=== PATIENT | female | born 1970 | race Caucasian/White ===

== ENCOUNTER → 2017-09-08 10:22 | Outpatient (CLI) | payer OTHER, SELFPAY ==
[2017-09-08 09:19] VITALS: BP 133/88
[2017-09-08 11:33] LABS: ALB/GLOB Ratio 0.9 RATIO (0.9-2.4); AST(SGOT) 20 U/L (15-37); Alanine Aminotransfer ALT/SGPT 26 U/L (13-56); Albumin, Serum 3.5 g/dL (3.2-5.0); Alkaline Phosphatase 101 U/L (45-117); Anion Gap 8 (5-15); BUN 10 mg/dL (7-18); BUN/Creat Ratio 15.4 RATIO (10-20); Calcium,Total 8.7 mg/dL (8.5-10.1); Chloride 107 mmol/L (98-107); Creatinine, Serum 0.65 mg/dL (0.55-1.02); EST Glomerular Filtration Rate 105 mL/min (>60); Est Glom Filt Rate - Afr Amer 127 mL/min (>60); Free T3 4.3 pg/mL (2.18-3.98); Globulin 4.1 g/dL (2.2-4.2); Glucose 129 mg/dL (70-110); Potassium 4.3 mmol/L (3.5-5.1); Protein, Total 7.6 g/dL (6.4-8.2); Sodium Level 140 mmol/L (136-145); T4 Free Direct 1.23 ng/dL (0.76-1.46); Thyroid Stim Hormone (TSH) < 0.01 uIU/mL (0.358-3.74)
== END ==
PROVIDERS: Family Provider Family Medicine; PCP Family Medicine; Visit Provider Nurse Practitioner
DX: E07.9 Disorder of thyroid, unspecified (principal); R89.9 Unspecified abnormal finding in specimens from other organs, systems and tissues
CPT/HCPCS: 36415; 80053; 84439; 84443; 84481

== ENCOUNTER → 2017-09-19 12:38 | Outpatient (CLI) | payer OTHER, SELFPAY ==
[2017-09-08 09:19] VITALS: BP 133/88
--- NOTE | 2017-09-19 12:40 | US_ITS ---
STUDY: THYROID ULTRASOUND REASON FOR EXAM: Female, 47 years old. Thyroid disorder TECHNIQUE: Ultrasound evaluation of the thyroid was performed with real-time and static ash-scale imaging. COMPARISON: None. FINDINGS: RIGHT LOBE: The right lobe of the thyroid gland measures 5.2 x 2.7 x 2.4 cm. There is a homogeneous echotexture. There are 2 right thyroid lobe nodules, the larger located in the midpole measuring 3.7 x 1.8 x 1.9 cm. This nodule is diffusely hypoechoic, demonstrates well-defined margins, and mild internal vascularity. There is an additional smaller complex cystic nodule measuring 1.3 x 1.0 x 1.0 cm. There is no demonstrated internal color flow of this nodule. LEFT LOBE: The left lobe of the thyroid gland measures 4.8 x 1.9 x 1.7 cm. There is a homogeneous echotexture. There is a 2.4 x 1.4 x 1.4 cm well-defined hypoechoic nodule of the mid pole measuring 2.4 x 1.4 x 1.4 cm. This demonstrates minimal internal vascularity. ISTHMUS: The isthmus measures 2.0 mm there is a hypoechoic 0.8 x 0.6 x 0.4 cm hypoechoic hypovascular nodule of the isthmus.. The regional lymph nodes are normal. US/Thyroid IMPRESSION: Nodules of the left and right thyroid lobes and isthmus as reported above. Biopsy of the larger left and right lobe nodules may be indicated to confirm benignity. None of the visualized nodules demonstrate specific malignant characteristics. Electronically Signed: Edd Fuentes MD at 19:24 EST , Service support ,
== END ==
PROVIDERS: Family Provider Family Medicine; PCP Family Medicine; Visit Provider Nurse Practitioner
DX: E07.9 Disorder of thyroid, unspecified (principal); R13.10 Dysphagia, unspecified
CPT/HCPCS: 76536

== ENCOUNTER → 2017-10-13 12:24 | Outpatient (CLI) | payer OTHER, SELFPAY ==
[2017-10-13 13:44] LABS: T4 Free Direct 1.22 ng/dL (0.76-1.46); Thyroid Stim Hormone (TSH) < 0.01 uIU/mL (0.358-3.74)
== END ==
PROVIDERS: Family Provider Family Medicine; PCP Family Medicine; Visit Provider Nurse Practitioner
DX: E05.90 Thyrotoxicosis, unspecified without thyrotoxic crisis or storm (principal)
CPT/HCPCS: 36415; 84439; 84443; 84481

== ENCOUNTER → 2017-10-18 08:34 | Outpatient (CLI) | payer OTHER, SELFPAY ==
--- NOTE | 2017-10-18 08:36 | NM_ITS ---
CLINICAL: 47-year-old female with history of thyroid nodularity and abnormal in vitro thyroid function studies. I-123 THYROID UPTAKE and SCAN COMPARISON: Thyroid ultrasound report 09/19/2017 FINDINGS: The patient was administered a 306 uCi I-123 capsule by mouth. The 4-hour I-123 radioactive iodine thyroidal uptake was calculated to be 14.3 % (normal 5 to 25 %). The 24-hour I-123 radioactive iodine thyroidal uptake was calculated to be 25.1 % (normal 5 to 40 %). The I-123 thyroid scan demonstrates homogeneous radiopharmaceutical concentration throughout both lobes of a U -shaped thyroid gland. There are no colloidal parenchymal hypofunctioning cold nodules noted in either lobe of the thyroid gland. The left lobe is smaller than right. NM/Thyroid Image Quant Measure IMPRESSION: 1. NORMAL 4- and 24-hour I-123 radioactive iodine thyroidal uptakes. 2. 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 (Dave et al, J Nucl Med 32: 1455, 1990). 3. No hypofunctioning-cold nodules are identified. Electronically Signed: [place] DO at 0:00 EDT Tel , Service support ,
== END ==
PROVIDERS: Family Provider Family Medicine; PCP Family Medicine; Visit Provider Nurse Practitioner
DX: E05.90 Thyrotoxicosis, unspecified without thyrotoxic crisis or storm (principal)
CPT/HCPCS: 78014; A9516

== ENCOUNTER → 2017-12-16 11:26 | Outpatient (CLI) | payer OTHER, SELFPAY ==
--- NOTE | 2017-12-16 09:00 | ASPS_PTH ---
PATIENT: SREE BRADEN LOC: [facility] U#:[id number] AGE/SX: 54/F ROOM: RE12/16/[address]: Dr. Parag Andres MD : 1970 BED: DIS: SPEC #: [id number] RECD: 12/16/17 11:22 STATUS: PANCHO YUKI #: [id number] KARLA: 12/16/17 09:[address]: Parag Andres DEPT: CYTOLOGY RECD BY: Bay Batres ENTERED: 12/16/17 11:52 SP TYPE: ASPIRATION OTHR DR: DO Jyothi Dewey, CORPORATE COMMUNICATIONS SPECIALIST-C Tissues: A - Thyroid gland, NOS B - Thyroid gland, NOS Procedures: Pap Stain (control) Special Stain Group II Cytology Other HEADER OPERATION: Ultrasound-guided fine needle aspiration bilateral thyroid PRE-OP DIAGNOSIS: Hyperthyroidism E05.90, thyroid nodules with hyperthyroidism E05.10 TISSUE SUBMITTED: A ? Right thyroid fine needle aspiration (16 slides), B ? Left thyroid fine needle aspiration (16 slides) DIAGNOSIS CYTOLOGY A. Right thyroid nodule, ultrasound-guided FNA (smears): Consistent with benign follicular nodule with cystic changes. See cytology study and comment. B. Left thyroid nodule, ultrasound-guided FNA (smears): Consistent with benign follicular nodule. See cytology study and comment. SJ:carl 12/19/17 COMMENT A. The findings may represent adenomatoid nodule with cystic changes. B. The findings may represent adenomatoid colloid nodule. Correlation with clinical, radiologic findings and appropriate follow up are necessary. CYTOLOGY STUDY Slides are reviewed. A. The specimen is adequate for evaluation. The specimen is cellular and consists of benign follicular cells, H?rthle cells, numerous macrophages and minimal colloid. B. The specimen is adequate for evaluation. The specimen is cellular and consists of benign follicular cells, H?rthle cells, macrophages and minimal colloid. CYTOLOGY GROSS A - Received are 16 smears labeled with the patient's name and designated per the requisition as right thyroid. Submitted for staining. B - Received are 16 smears labeled with the patient's name and designated per the requisition as left thyroid. Submitted for staining. 12/16/17 TC:5 CPT: 77961 x2
== END ==
PROVIDERS: Family Provider Family Medicine; PCP Family Medicine; Visit Provider Surgery
DX: E05.10 Thyrotoxicosis with toxic single thyroid nodule without thyrotoxic crisis or storm (principal)
CPT/HCPCS: 88161; 88313

== ENCOUNTER → 2019-02-20 10:06 | Outpatient (CLI) | payer OTHER, SELFPAY ==
[2019-01-15 17:41] VITALS: BMI 46.5
[2019-02-20 11:19] LABS: Hemoglobin A1c 8.3 % (4.2-6.3)
[2019-02-20 11:32] LABS: ALB/GLOB Ratio 0.9 RATIO (0.9-2.4); AST(SGOT) 21 U/L (15-37); Alanine Aminotransfer ALT/SGPT 26 U/L (13-56); Albumin, Serum 3.4 g/dL (3.2-5.0); Alkaline Phosphatase 98 U/L (45-117); Anion Gap 9 (5-15); BUN 11 mg/dL (7-18); BUN/Creat Ratio 16.8 RATIO (10-20); Calcium,Total 8.5 mg/dL (8.5-10.1); Chloride 104 mmol/L (98-107); Creatinine, Serum 0.66 mg/dL (0.55-1.02); EST Glomerular Filtration Rate 103 mL/min (>60); Est Glom Filt Rate - Afr Amer 124 mL/min (>60); Free T3 4.1 pg/mL (2.18-3.98); Globulin 3.9 g/dL (2.2-4.2); Glucose 199 mg/dL (74-106); Potassium 4.3 mmol/L (3.5-5.1); Protein, Total 7.3 g/dL (6.4-8.2); Sodium Level 139 mmol/L (136-145); Thyroid Stim Hormone (TSH) 0.03 uIU/mL (0.358-3.74)
[2019-02-21 14:08] LABS: Thyroid Peroxidase AB 13 IU/mL (0-34)
[2019-02-21 14:39] LABS: Thyroglobulin Antibody < 1.0 IU/mL (0.0-0.9)
== END ==
PROVIDERS: Family Provider Internal Medicine; PCP Internal Medicine; Referring Provider Internal Medicine Endocrinology, Diabetes & Metabolism; Visit Provider Internal Medicine Endocrinology, Diabetes & Metabolism
DX: E05.00 Thyrotoxicosis with diffuse goiter without thyrotoxic crisis or storm (principal); R73.01 Impaired fasting glucose; Z79.899 Other long term (current) drug therapy
CPT/HCPCS: 36415; 80053; 83036; 84439; 84443; 84481; 86376; 86800

== ENCOUNTER → 2019-03-02 09:42 | Outpatient (CLI) | payer OTHER, SELFPAY ==
[2019-03-02 09:08] VITALS: BMI 46.5
[2019-03-02 09:48] LABS: Mucous, Urine 0 SEEN /hpf (<or=2+); Red Blood Cells-Urine 0 SEEN /hpf (0-5); White Blood Cells 0 SEEN /hpf (0-5)
[2019-03-02 12:21] LABS: Color, Urine Yellow (Yellow); Glucose, Dipstick Normal (Normal); Ketone-Dipstick Negative (Negative); Leukocyte Esterase-Dipstick Negative /ul (Negative); Nitrite-Dipstick Negative (Negative); Occult Blood-Urine Negative /ul (Negative); Protein-Dipstick Negative (Negative); Urine Bilirubin Dipstick Negative (Negative); Urine Clarity Clear (Clear); Urine Urobilinogen Normal (Normal)
[2019-03-02 12:30] LABS: Bacteria RARE /hpf (None Seen); Squamous Epithelial Cells - UA 5-10 SEEN /hpf (5-10)
[2019-03-02 12:49] LABS: Cholesterol 252 mg/dL (200); High Density Lipoprotein 48 mg/dL; Triglycerides 150 mg/dL; Very Low Density Lipoprotein 30 mg/dL (5-40)
[2019-03-02 12:51] LABS: Microalbumin,Random Urine 14.4 mg/L (NO RANGE EST.); Microalbumin:Creatinine Ratio 20.2 mg/g CRE (<30 mg/g CRE)
== END ==
PROVIDERS: Family Provider Internal Medicine; PCP Internal Medicine; Visit Provider Internal Medicine
DX: E11.9 Type 2 diabetes mellitus without complications (principal); R35.0 Frequency of micturition
CPT/HCPCS: 36415; 80061; 81001; 82043; 82570

== ENCOUNTER → 2019-03-14 13:11 | Outpatient (CLI) | payer OTHER, SELFPAY ==
[2019-03-02 09:08] VITALS: BMI 46.5
== END ==
PROVIDERS: Family Provider Internal Medicine; PCP Internal Medicine; Referring Provider Internal Medicine; Visit Provider Internal Medicine
DX: G47.10 Hypersomnia, unspecified (principal)
CPT/HCPCS: 95806

== ENCOUNTER → 2019-03-30 10:09 | Outpatient (CLI) | payer OTHER, SELFPAY ==
[2019-03-28 10:18] VITALS: BMI 44.9
[2019-03-30 12:59] LABS: Free T3 3.3 pg/mL (2.18-3.98); T4 Free Direct 0.99 ng/dL (0.76-1.46); Thyroid Stim Hormone (TSH) 0.27 uIU/mL (0.358-3.74)
== END ==
PROVIDERS: Family Provider Internal Medicine; PCP Internal Medicine; Visit Provider Internal Medicine Endocrinology, Diabetes & Metabolism
DX: E05.00 Thyrotoxicosis with diffuse goiter without thyrotoxic crisis or storm (principal)
CPT/HCPCS: 36415; 84439; 84443; 84481

== ENCOUNTER → 2019-05-07 14:51 | Outpatient (CLI) | payer OTHER, SELFPAY ==
[2019-05-07 08:51] VITALS: BMI 44.9
[2019-05-07 16:22] LABS: T4 Free Direct 1.23 ng/dL (0.76-1.46); Thyroid Stim Hormone (TSH) 0.07 uIU/mL (0.358-3.74)
== END ==
PROVIDERS: Family Provider Internal Medicine; PCP Internal Medicine; Referring Provider Internal Medicine Endocrinology, Diabetes & Metabolism; Visit Provider Internal Medicine Endocrinology, Diabetes & Metabolism
DX: E05.00 Thyrotoxicosis with diffuse goiter without thyrotoxic crisis or storm (principal)
CPT/HCPCS: 36415; 84439; 84443; 84481

== ENCOUNTER → 2020-03-26 12:07 | Outpatient (CLI) | payer OTHER, SELFPAY ==
[2019-05-07 08:51] VITALS: BMI 44.9
[2020-03-26 11:32] VITALS: BMI 44.9
[2020-03-26 16:00] LABS: Absolute Lymphocyte Count 3.49 X10^3/uL (0.83-4.51); Absolute Neutrophil Count 5.2 X10^3/uL (2.0-7.7); Basophil# 0.04 X10^3/uL; Basophil% 0.4 % (0-1); Eosinophil# 0.16 X10^3/uL; Eosinophils% 1.7 % (0-5); Hematocrit 45.3 % (37-47); Hemoglobin 14.1 g/dL (12.0-15.0); Lymphocyte # 3.49 X10^3/ul (4.0); Lymphocyte % 36.4 % (19-41); Mean Corp Hgb Conc 31.1 g/dL (32-36); Mean Corpuscular Volume 89.9 fL (81-99); Mean Platelet Vol. 10.4 fl (6.2-12.0); Monocyte# 0.64 X10^3/uL; Monocyte% 6.7 % (0-10); NRBC Flagged by Analyzer 0 % (0-5); Neutrophil # 5.23 X10^3/uL (2.7-7.7); Neutrophil % 54.6 % (47-70); Platelet Count 431 K/mm3 (150-450); RBC Distribution Width CV 13.1 % (11.6-14.6); RBC Distribution Width SD 42.8 fl (35.1-43.9); Red Blood Count 5.04 M/mm3 (4.2-5.4); White Blood Count 9.6 K/mm3 (4.4-11.0)
[2020-03-26 16:21] LABS: Microalbumin,Random Urine < 5.0 mg/L (NO RANGE EST.)
[2020-03-26 16:28] LABS: ALB/GLOB Ratio 0.9 RATIO (0.9-2.4); AST(SGOT) 20 U/L (15-37); Alanine Aminotransfer ALT/SGPT 30 U/L (13-56); Albumin, Serum 3.9 g/dL (3.2-5.0); Alkaline Phosphatase 93 U/L (45-117); Anion Gap 4 (5-15); BUN 12 mg/dL (7-18); Calcium,Total 8.7 mg/dL (8.5-10.1); Chloride 105 mmol/L (98-107); Cholesterol 244 mg/dL (200); EST Glomerular Filtration Rate 113 mL/min (>60); Est Glom Filt Rate - Afr Amer 137 mL/min (>60); Globulin 4.4 g/dL (2.2-4.2); Glucose 134 mg/dL (74-106); High Density Lipoprotein 48 mg/dL; Protein, Total 8.3 g/dL (6.4-8.2); Sodium Level 139 mmol/L (136-145); Triglycerides 262 mg/dL
[2020-03-26 16:29] LABS: T4 Free Direct 1.19 ng/dL (0.76-1.46); Thyroid Stim Hormone (TSH) 0.07 uIU/mL (0.358-3.74); Very Low Density Lipoprotein 52 mg/dL (5-40)
[2020-04-03 10:13] LABS: T3 Reverse 31.2 ng/dL (9.2-24.1)
== END ==
PROVIDERS: Family Provider Internal Medicine; PCP Internal Medicine; Referring Provider Internal Medicine Endocrinology, Diabetes & Metabolism; Visit Provider Internal Medicine Endocrinology, Diabetes & Metabolism
DX: E05.00 Thyrotoxicosis with diffuse goiter without thyrotoxic crisis or storm (principal); E11.65 Type 2 diabetes mellitus with hyperglycemia
CPT/HCPCS: 36415; 80053; 80061; 82043; 82570; 84439; 84443; 84482; 85025

== ENCOUNTER → 2020-04-07 15:13 | Outpatient (CLI) | payer OTHER, SELFPAY ==
[2020-03-26 11:32] VITALS: BMI 44.9
[2020-03-28 15:36] VITALS: BMI 44.9
--- NOTE | 2020-04-07 15:15 | BI_ITS ---
MAMMOGRAPHY - BILATERAL SCREENING REASON FOR EXAM: Female, 49 years old. Routine annual screening examination. PERTINENT HISTORY: Non-contributory. TECHNIQUE: Digital bilateral breast ramon (3D mammographic acquisition) in the CC and MLO projections. 2-D mediolateral oblique (MLO) and craniocaudad (CC) views of both breasts were obtained. CAD: Full Field Digital Mammography with Computer Added Detection was performed. COMPARISON: None. Baseline examination. FINDINGS: Breast Composition: There are scattered areas of fibroglandular density. There are no dominant masses or suspicious calcifications. Benign appearing bilateral axillary lymph nodes. No other significant abnormalities are identified. BI/SCREEN MAMM (CAD) W/RAMON BILAT IMPRESSION: Negative screening mammogram. Yearly followup mammogram recommended. (A) ASSESSMENT CATEGORY: BIRADS Category 2: Benign. A letter regarding these results will be sent to the patient by the facility within 30 days. Approximately 10% of breast cancers are not detected by mammography. A normal mammogram should not delay biopsy of a clinically suspicious abnormality. [id number] Electronically Signed: Scott Torres, at 16:01 EDT , Service support ,
== END ==
PROVIDERS: PCP Internal Medicine; Referring Provider Internal Medicine; Visit Provider Internal Medicine
DX: Z12.31 Encounter for screening mammogram for malignant neoplasm of breast (principal)
CPT/HCPCS: 77063; 77067

== ENCOUNTER → 2020-09-24 15:31 | Outpatient (CLI) | payer OTHER, SELFPAY ==
[2020-09-23 15:37] VITALS: BMI 44.6
[2020-09-24 16:58] LABS: Hemoglobin A1c 7.2 % (3.8-5.6)
[2020-09-24 17:00] LABS: T4 Free Direct 1.18 ng/dL (0.76-1.46); Thyroid Stim Hormone (TSH) 0.56 uIU/mL (0.358-3.74)
== END ==
PROVIDERS: PCP Internal Medicine; Referring Provider Internal Medicine Endocrinology, Diabetes & Metabolism; Visit Provider Internal Medicine Endocrinology, Diabetes & Metabolism
DX: E05.90 Thyrotoxicosis, unspecified without thyrotoxic crisis or storm (principal); E11.9 Type 2 diabetes mellitus without complications
CPT/HCPCS: 36415; 83036; 84439; 84443

== ENCOUNTER → 2020-09-26 14:29 | Outpatient (CLI) | payer OTHER, SELFPAY ==
[2020-09-23 15:37] VITALS: BMI 44.6
--- NOTE | 2020-09-26 14:31 | US_ITS ---
STUDY: THYROID ULTRASOUND REASON FOR EXAM: Female, 50 years old. Abnormal thyroid function tests, history of nodules TECHNIQUE: Ultrasound evaluation of the thyroid was performed with real-time and static ash-scale imaging. COMPARISON: 09/19/2017 FINDINGS: RIGHT LOBE: The right lobe of the thyroid gland measures 5.5 x 2.7 x 2.4 cm. There is a homogeneous echotexture. 2 separate solid/cystic nodules, larger measures 3.8 cm. LEFT LOBE: The left lobe of the thyroid gland measures 4.8 x 2.0 x 2.1 cm. There is a homogeneous echotexture. There is a stable solid 2.4 cm nodule in the mid aspect. ISTHMUS: The isthmus measures 4 mm. Stable hypoechoic 0.9 cm isthmus nodule The regional lymph nodes are normal. US/Thyroid IMPRESSION: Stable enlarged homogeneous thyroid gland with bilateral nodules. Findings again suggestive of goiter. No significant change since the previous study. Electronically Signed: Solo Milton MD at 17:02 EST , Service support ,
== END ==
PROVIDERS: PCP Internal Medicine; Referring Provider Internal Medicine Endocrinology, Diabetes & Metabolism; Visit Provider Internal Medicine Endocrinology, Diabetes & Metabolism
DX: E05.20 Thyrotoxicosis with toxic multinodular goiter without thyrotoxic crisis or storm (principal)
CPT/HCPCS: 76536

== ENCOUNTER → 2020-12-09 | Outpatient (CLI) | payer OTHER, SELFPAY ==
--- NOTE | 2020-12-08 15:20 | EMB_PTH ---
PATIENT: SREE BRADEN LOC: [facility] U#:[id number] AGE/SX: 50/F ROOM: RE12/09/[address]: JULIETA Fletcher : 1970 BED: DIS: 12/09/2020 SPEC #: [id number] RECD: 12/09/20 16:27 STATUS: PANCHO REQ #: [id number] KARLA: 12/08/20 15:[address]: Desirae Bansal NP DEPT: SURGICAL PATHOLOGY RECD BY: Suzanne Murrell ENTERED: 12/10/20 09:07 SP TYPE: ENDOM BX/C KASI DR: Dr. Lara Parada MD Tissues: Endometrium, NOS Procedures: Surgery Specimen Level IV HEADER OPERATION: Endometrial biopsy PRE-OP DIAGNOSIS: PMB TISSUE SUBMITTED: Endometrial biopsy MICROSCOPIC DIAGNOSIS Endometrial biopsy: Proliferative endometrium. SJ:carl 12/11/2020 MICROSCOPIC DESCRIPTION Slides are reviewed. GROSS DESCRIPTION Received is one container labeled with the patient's name and not further designated. The specimen consists of multiple fragments of luna hemorrhagic soft tissue mixed with mucoid tissue that in aggregate measure 3 x 2.5 x 0.3 cm. The specimen is totally submitted in one cassette. / SJ:carl 12/10/20 TC:4 CPT: 42988
[2020-12-09 14:54] VITALS: BMI 44.9
[2020-12-12 20:19] LABS: HPV APTIMA, High Risk Negative (Negative)
== END | disposition home or self-care (01) ==
LOC: LABSPEC 16:33
PROVIDERS: PCP Internal Medicine; Referring Provider Nurse Practitioner Women's Health; Visit Provider Nurse Practitioner Women's Health
DX: Z12.4 Encounter for screening for malignant neoplasm of cervix (principal); N95.0 Postmenopausal bleeding
CPT/HCPCS: 87624; 88175; 88305; G0145

== ENCOUNTER → 2020-12-10 13:30 | Outpatient (CLI) | payer OTHER, SELFPAY ==
[2020-12-09 14:54] VITALS: BMI 44.9
--- NOTE | 2020-12-10 13:32 | US_ITS ---
STUDY: ULTRASOUND OF THE FEMALE PELVIS - COMPLETE REASON FOR EXAM: Female, 50 years old. Post menopausal bleeding LMP: Postmenopausal. TECHNIQUE: Transabdominal and Transvaginal TECHNICAL QUALITY: Adequate. COMPARISON: None. FINDINGS: The uterus is anteverted and is in a midline position. The uterus measures 8.8 cm x 4.6 x 4.0 cm. Normal uterine cervix. The endometrium measures 3. mm in thickness, and is hyperechoic. There is no demonstrated endometrial mass. 1.4 cm x 1.2 cm fundal fibroid. I.U.D. - The patient does not have an I.U.D. The right ovary is visualized. The right ovary measures 2.7 cm x 2.7 cm x 2 cm. There is no right ovarian cyst or ovarian mass. There is no visualized right adnexal mass or complex lesion. There is normal arterial and normal venous vascularity. The left ovary is visualized. The left ovary measures 4 cm x 1.9 cm x 2.1 cm. There is no left ovarian cyst or ovarian mass. There is no visualized left adnexal mass or complex lesion. There is normal arterial and normal venous vascularity. There is no fluid in the cul-de-sac. The pre void volume of the bladder was 421 ml. Polycystic ovary disease: No. US/Pelvic (Non ) IMPRESSION: 1.2 cm x 1.4 cm fundal fibroid. Electronically Signed: Scott Torres MD at 15:35 EDT , Service support ,
--- NOTE | 2020-12-10 13:32 | US_ITS ---
STUDY: ULTRASOUND OF THE FEMALE PELVIS - COMPLETE REASON FOR EXAM: Female, 50 years old. Post menopausal bleeding LMP: Postmenopausal. TECHNIQUE: Transabdominal and Transvaginal TECHNICAL QUALITY: Adequate. COMPARISON: None. FINDINGS: The uterus is anteverted and is in a midline position. The uterus measures 8.8 cm x 4.6 x 4.0 cm. Normal uterine cervix. The endometrium measures 3. mm in thickness, and is hyperechoic. There is no demonstrated endometrial mass. 1.4 cm x 1.2 cm fundal fibroid. I.U.D. - The patient does not have an I.U.D. The right ovary is visualized. The right ovary measures 2.7 cm x 2.7 cm x 2 cm. There is no right ovarian cyst or ovarian mass. There is no visualized right adnexal mass or complex lesion. There is normal arterial and normal venous vascularity. The left ovary is visualized. The left ovary measures 4 cm x 1.9 cm x 2.1 cm. There is no left ovarian cyst or ovarian mass. There is no visualized left adnexal mass or complex lesion. There is normal arterial and normal venous vascularity. There is no fluid in the cul-de-sac. The pre void volume of the bladder was 421 ml. Polycystic ovary disease: No. US/Transvaginal Non- IMPRESSION: 1.2 cm x 1.4 cm fundal fibroid. Electronically Signed: Scott Torres MD at 15:35 EDT , Service support ,
== END ==
PROVIDERS: PCP Internal Medicine; Referring Provider Nurse Practitioner Women's Health; Visit Provider Nurse Practitioner Women's Health
DX: N95.0 Postmenopausal bleeding (principal)
CPT/HCPCS: 76830; 76856

== ENCOUNTER → 2020-12-17 10:46 | Outpatient (CLI) | payer OTHER, SELFPAY ==
[2020-12-17 10:14] VITALS: BMI 44.9
[2020-12-17 12:39] LABS: ALB/GLOB Ratio 0.9 RATIO (0.9-2.4); AST(SGOT) 12 U/L (15-37); Alanine Aminotransfer ALT/SGPT 22 U/L (13-56); Albumin, Serum 3.8 g/dL (3.2-5.0); Alkaline Phosphatase 82 U/L (45-117); Anion Gap 5 (5-15); BUN 11 mg/dL (7-18); BUN/Creat Ratio 18.6 RATIO (10-20); Calcium,Total 9.4 mg/dL (8.5-10.1); Chloride 105 mmol/L (98-107); Cholesterol 225 mg/dL (200); Creatinine, Serum 0.59 mg/dL (0.55-1.02); EST Glomerular Filtration Rate 115 mL/min (>60); Est Glom Filt Rate - Afr Amer 139 mL/min (>60); Free T3 3.3 pg/mL (2.18-3.98); Globulin 4.1 g/dL (2.2-4.2); Glucose 131 mg/dL (74-106); High Density Lipoprotein 51 mg/dL; Potassium 4.3 mmol/L (3.5-5.1); Protein, Total 7.9 g/dL (6.4-8.2); Sodium Level 139 mmol/L (136-145); T4 Free Direct 1.05 ng/dL (0.76-1.46); Thyroid Stim Hormone (TSH) 0.28 uIU/mL (0.358-3.74); Triglycerides 154 mg/dL; Very Low Density Lipoprotein 31 mg/dL (5-40)
[2020-12-17 12:55] LABS: Creatinine, Urine (random) < 13.00 mg/dL (NO RANGE EST.); Microalbumin,Random Urine < 5.0 mg/L (NO RANGE EST.)
== END ==
PROVIDERS: PCP Internal Medicine; Referring Provider Internal Medicine Endocrinology, Diabetes & Metabolism; Visit Provider Internal Medicine Endocrinology, Diabetes & Metabolism
DX: I10 Essential (primary) hypertension (principal); E05.20 Thyrotoxicosis with toxic multinodular goiter without thyrotoxic crisis or storm; E11.9 Type 2 diabetes mellitus without complications
CPT/HCPCS: 36415; 80053; 80061; 82043; 82570; 84439; 84443; 84481

== ENCOUNTER → 2021-01-29 13:55 | Outpatient (CLI) | payer OTHER, SELFPAY ==
[2021-01-29 13:35] VITALS: BMI 44.9
[2021-01-29 15:15] LABS: Absolute Lymphocyte Count 4.24 X10^3/uL (0.83-4.51); Absolute Neutrophil Count 5.2 X10^3/uL (2.0-7.7); Basophil# 0.05 X10^3/uL; Basophil% 0.5 % (0-1); Eosinophil# 0.13 X10^3/uL; Eosinophils% 1.3 % (0-5); Hematocrit 40.7 % (37-47); Hemoglobin 13.1 g/dL (12.0-15.0); Lymphocyte # 4.24 X10^3/ul (0.83-4.51); Lymphocyte % 41.1 % (19-41); Mean Corp Hgb Conc 32.2 g/dL (32-36); Mean Corpuscular Hgb 28.1 pg (27.0-32.0); Mean Corpuscular Volume 87.3 fL (81-99); Mean Platelet Vol. 10.2 fl (6.2-12.0); Monocyte# 0.71 X10^3/uL; Monocyte% 6.9 % (0-10); NRBC Flagged by Analyzer 0 % (0-5); Neutrophil # 5.16 X10^3/uL (2.7-7.7); Neutrophil % 49.9 % (47-70); Platelet Count 448 K/mm3 (150-450); RBC Distribution Width CV 12.8 % (11.6-14.6); RBC Distribution Width SD 40.6 fl (35.1-43.9); Red Blood Count 4.66 M/mm3 (4.2-5.4); White Blood Count 10.3 K/mm3 (4.4-11.0)
[2021-01-29 15:37] LABS: Free T3 3.8 pg/mL (2.18-3.98); T4 Free Direct 1.17 ng/dL (0.76-1.46); Thyroid Stim Hormone (TSH) 0.05 uIU/mL (0.358-3.74)
== END ==
PROVIDERS: PCP Internal Medicine; Referring Provider Internal Medicine Endocrinology, Diabetes & Metabolism; Visit Provider Internal Medicine Endocrinology, Diabetes & Metabolism
DX: E05.20 Thyrotoxicosis with toxic multinodular goiter without thyrotoxic crisis or storm (principal); R53.81 Other malaise; R53.83 Other fatigue
CPT/HCPCS: 36415; 84439; 84443; 84481; 85025

== ENCOUNTER → 2021-04-06 13:58 | Outpatient (CLI) | payer OTHER, SELFPAY ==
[2021-04-06 15:32] LABS: Erythrocyte Sedimentation Rate 21 mm/hr (0-30)
[2021-04-06 15:35] LABS: Absolute Lymphocyte Count 4.53 X10^3/uL (0.83-4.51); Absolute Neutrophil Count 5.2 X10^3/uL (2.0-7.7); Basophil# 0.05 X10^3/uL; Basophil% 0.5 % (0-1); Eosinophil# 0.23 X10^3/uL; Eosinophils% 2.1 % (0-5); Hematocrit 39.5 % (37-47); Hemoglobin 12.6 g/dL (12.0-15.0); Lymphocyte # 4.53 X10^3/ul (0.83-4.51); Lymphocyte % 42.2 % (19-41); Mean Corp Hgb Conc 31.9 g/dL (32-36); Mean Corpuscular Hgb 28.4 pg (27.0-32.0); Mean Corpuscular Volume 89.2 fL (81-99); Mean Platelet Vol. 10.3 fl (6.2-12.0); Monocyte# 0.72 X10^3/uL; Monocyte% 6.7 % (0-10); NRBC Flagged by Analyzer 0 % (0-5); Neutrophil # 5.17 X10^3/uL (2.7-7.7); Neutrophil % 48.2 % (47-70); Platelet Count 403 K/mm3 (150-450); RBC Distribution Width CV 13.3 % (11.6-14.6); RBC Distribution Width SD 43.6 fl (35.1-43.9); Red Blood Count 4.43 M/mm3 (4.2-5.4); White Blood Count 10.7 K/mm3 (4.4-11.0)
[2021-04-06 16:10] LABS: Anion Gap 5 (5-15); BUN 10 mg/dL (7-18); BUN/Creat Ratio 16.4 RATIO (10-20); Calcium,Total 9.2 mg/dL (8.5-10.1); Chloride 103 mmol/L (98-107); Creatinine, Serum 0.61 mg/dL (0.55-1.02); EST Glomerular Filtration Rate 111 mL/min (>60); Est Glom Filt Rate - Afr Amer 134 mL/min (>60); Glucose 123 mg/dL (74-106); Potassium 4.2 mmol/L (3.5-5.1); Rheumatoid Factor < 10.0 IU/mL (<15); Sodium Level 138 mmol/L (136-145); Thyroid Stim Hormone (TSH) 0.35 uIU/mL (0.358-3.74)
[2021-04-06 16:17] LABS: Hemoglobin A1c 6.9 % (3.8-5.6)
[2021-04-08 16:35] LABS: ANTINUCLEAR ANTIBODIES DIRECT Negative (Negative)
[2021-04-09 07:44] LABS: CCP IgG Antibodies 11 units (0-19)
== END ==
PROVIDERS: PCP Internal Medicine; Visit Provider Physician Assistant
DX: E11.9 Type 2 diabetes mellitus without complications (principal); H53.10 Unspecified subjective visual disturbances; M25.50 Pain in unspecified joint; R51.9 Headache, unspecified; U07.1 COVID-19; E07.9 Disorder of thyroid, unspecified
CPT/HCPCS: 36415; 80048; 83036; 84443; 85025; 85652; 86038; 86140; 86200; 86431

== ENCOUNTER → 2022-02-02 | Outpatient (CLI) | payer MEDICAID, SELFPAY ==
[2022-02-02 12:45] LABS: ALB/GLOB Ratio 0.9 RATIO (0.9-2.4); AST(SGOT) 20 U/L (15-37); Alanine Aminotransfer ALT/SGPT 21 U/L (13-56); Albumin, Serum 3.5 g/dL (3.2-5.0); Alkaline Phosphatase 89 U/L (45-117); Anion Gap 7 (5-15); BUN 11 mg/dL (7-18); BUN/Creat Ratio 16.5 RATIO (10-20); Calcium,Total 9.1 mg/dL (8.5-10.1); Chloride 102 mmol/L (98-107); Cholesterol 213 mg/dL (200); Creatinine, Serum 0.67 mg/dL (0.55-1.02); EST Glomerular Filtration Rate 100 mL/min (>60); Est Glom Filt Rate - Afr Amer 120 mL/min (>60); Free T3 4.1 pg/mL (2.18-3.98); Globulin 3.9 g/dL (2.2-4.2); Glucose 169 mg/dL (74-106); High Density Lipoprotein 43 mg/dL; Potassium 4.7 mmol/L (3.5-5.1); Protein, Total 7.4 g/dL (6.4-8.2); Sodium Level 137 mmol/L (136-145); T4 Free Direct 1.14 ng/dL (0.76-1.46); Thyroid Stim Hormone (TSH) 0.05 uIU/mL (0.358-3.74); Triglycerides 161 mg/dL; Very Low Density Lipoprotein 32 mg/dL (5-40)
[2022-02-02 12:49] LABS: Microalbumin,Random Urine 7.7 mg/L (NO RANGE EST.)
== END | disposition home or self-care (01) ==
LOC: BIMLAB 10:41
PROVIDERS: PCP Internal Medicine; Referring Provider Internal Medicine Endocrinology, Diabetes & Metabolism; Visit Provider Internal Medicine Endocrinology, Diabetes & Metabolism
DX: E11.319 Type 2 diabetes mellitus with unspecified diabetic retinopathy without macular edema (principal); E05.20 Thyrotoxicosis with toxic multinodular goiter without thyrotoxic crisis or storm; E55.9 Vitamin D deficiency, unspecified; E66.9 Obesity, unspecified
CPT/HCPCS: 36415; 80053; 80061; 82043; 82306; 82570; 84439; 84443; 84481

== ENCOUNTER → 2022-12-30 | Outpatient (CLI) | payer MEDICAID, SELFPAY ==
[2022-12-30 10:45] LABS: Free T3 4.2 pg/mL (2.18-3.98); Thyroid Stim Hormone (TSH) 0.07 uIU/mL (0.358-3.74)
== END | disposition home or self-care (01) ==
PROVIDERS: PCP Internal Medicine; Referring Provider Nurse Practitioner Family; Visit Provider Nurse Practitioner Family
DX: E05.90 Thyrotoxicosis, unspecified without thyrotoxic crisis or storm (principal)
CPT/HCPCS: 36415; 84439; 84443; 84481

== ENCOUNTER → 2023-02-02 | Outpatient (CLI) | payer MEDICAID, SELFPAY ==
--- NOTE | 2023-02-01 | FLU_PTH ---
PATIENT: SREE BRADEN LOC: [facility] U#:[id number] AGE/SX: 52/F ROOM: RE02/02/[address]: Dr. Parag Andres MD : 1970 BED: DIS: 02/02/2023 SPEC #: [id number] RECD: 02/02/23 12:05 STATUS: PANCHO YUKI #: [id number] KARLA: 02/01/23 00:[address]: Parag Andres DEPT: CYTOLOGY RECD BY: Suzanne Murrell ENTERED: 02/02/23 13:09 SP TYPE: Fluid OTHR DR: Dr. Lara Parada MD Tissues: A - Thyroid gland, NOS B - Thyroid gland, NOS C - Thyroid gland, NOS D - Thyroid gland, NOS Procedures: Special Stain Group II Surgery Specimen Level IV Cytospin Fluid Cytology Other HEADER OPERATION: Fine needle aspiration of left and right thyroid PRE-OP DIAGNOSIS: Abnormal ultrasound TISSUE SUBMITTED: A - Left thyroid fluid, B - Left thyroid x12 slides, C - Right thyroid fluid, D - Right thyroid x12 slides DIAGNOSIS CYTOLOGY A. Left thyroid fluid, fine needle aspiration (cytospin and cell block): Consistent with benign follicular/colloid nodule (Gregory Category II). Adequate for evaluation. See comment. B. Left thyroid, fine needle aspiration (smears): Consistent with benign follicular/colloid nodule (Gregory Category II). Adequate for evaluation. See comment. C. Right thyroid fluid, fine needle aspiration (cytospin and cell block): Negative for malignant cells. See comment. D. Right thyroid, fine needle aspiration (smears): Consistent with benign follicular/colloid nodule (Gregory Category II). Adequate for evaluation. See comment. SJ:carl 02/03/2023 COMMENT C. A few clusters of benign follicular cells are noted. Correlation with clinical, radiologic findings and appropriate follow up are necessary. The Gregory System for thyroid diagnostic categorization was used in the evaluation of this case. CYTOLOGY STUDY Slides are reviewed. CYTOLOGY GROSS A - Received is 30 ml of brown cloudy fluid labeled with the patient's name and and designated per the requisition as left thyroid. Submitted for cytology preparation including cell block. B - Received are 12 smears labeled with the patient's name and designated per the requisition as left thyroid. Submitted for staining. C - Received is 30 ml of brown cloudy fluid labeled with the patient's name and and designated per the requisition as right thyroid. Submitted for cytology preparation including cell block. D - Received are 12 smears labeled with the patient's name and designated per the requisition as right thyroid. Submitted for staining. / carl 02/02/2023 TC:5 CPT: 49973 x4, 21206 x2
== END | disposition home or self-care (01) ==
LOC: LABSPEC 12:11
PROVIDERS: PCP Internal Medicine; Referring Provider Surgery; Visit Provider Surgery
DX: E04.1 Nontoxic single thyroid nodule (principal)
CPT/HCPCS: 88108; 88161; 88305; 88313